=== PATIENT | female | born 1950 | race American Indian/Alaskan Native ===

== ENCOUNTER 2016-07-19 08:47 | Outpatient (CLI) | payer MEDICARE ==
[2016-07-19 09:32] LABS: Blood Urea Nitrogen 14 mg/dL (7-17)
[2016-07-19] MEDS ORDERED: NACL ONE (10:21)
--- NOTE | 2016-07-19 12:22 | Cat Scan Report ---
CT ABDOMEN WITH AND WITHOUT CONTRAST HISTORY: Metastatic ependymoma. TECHNIQUE: Helical CT performed after IV contrast. Oral contrast was administered. Sagittal and coronal reformatted images. COMPARISON: Head CT dated 01/15/16. FINDINGS: Heart size is normal. The visualized lung bases are clear. No suspicious bony lesion is identified. There is laxity of the upper anterior abdominal wall just below the xiphoid process which contains the distal stomach and a few bowel loops. This may represent previous ventral wall hernia repair, correlate with history. There is no obvious recurrent hernia. No bowel obstruction. There is fatty change throughout the liver. Surgical clips are identified along the margin of the left hepatic lobe which may represent partial resection, correlate with history. No suspicious liver mass is identified. The biliary system, pancreas, spleen and adrenal glands are unremarkable. A 5 cm simple cyst is noted in the midpole the left kidney. Scattered tiny simple cyst in the right kidney. No evidence for mass or hydronephrosis. The visualized ureters are unremarkable. The aorta is normal caliber. No evidence for ascites, adenopathy or acute inflammation. IMPRESSION: No evidence for metastatic disease to the abdomen. Mild hepatic steatosis. Possible surgical changes in the liver. Laxity of the anterior abdominal wall as outlined above please correlate with the patient's history. Scattered renal cysts.
== END 2016-07-19 08:48 | disposition home or self-care (01) ==
LOC: CT 08:47
PROVIDERS: ATTEND Internal Medicine Hematology & Oncology
DX: C71.9 Malignant neoplasm of brain, unspecified (principal)
CPT/HCPCS: 36415; 74170; 82565; 84520; Q9967

== ENCOUNTER 2016-08-11 16:47 | Emergency (ER) | payer MEDICARE ==
[2016-08-11] MEDS ORDERED: TYLENOL #3 PO ONE (19:05)
[2016-08-11 19:07] VITALS: BP 135/65
[2016-08-11] MEDS ORDERED: TYLENOL #3 ONE (19:21)
--- NOTE | 2016-08-11 20:35 | XRay Report ---
FINAL REPORT EXAM: XR HUMERUS 2 LT HISTORY: upper arm pain....fall COMPARISONS: None. FINDINGS: Three views left humerus Mild foreshortening and subluxation involving surgical neck of left humerus fracture. Minimally displaced greater tuberosity fracture is also present. IMPRESSION: Fractures involving the surgical neck of the left humerus and greater tuberosity of the left humeral head.
--- NOTE | 2016-08-11 20:37 | XRay Report ---
FINAL REPORT EXAM: XR SHOULDER 2 LT HISTORY: shoulder pain post fall COMPARISONS: None. FINDINGS: Six views left shoulder The humeral head projects over the glenoid on scapular Y-view. Mild foreshortening and subluxation involving a surgical neck of the left humerus fracture. A minimally displaced greater tuberosity fracture is also present. Acromioclavicular and coracoclavicular intervals are within normal limits. Incomplete evaluation of the adjacent left lung is remarkable for surgical clips projecting over the left lung base/left upper quadrant of the abdomen and left breast. IMPRESSION: Left humerus surgical neck and greater tuberosity fractures.
--- NOTE | 2016-08-12 03:37 | Emergency Department Report ---
Entered by THOMAS SANTILLAN, acting as scribe for CUCO CALDWELL NP. ED Fall HPI - General Chief Complaint: Fall Stated Complaint: LEFT ARM INJURY/FALL Time Seen by Provider: 08/11/16 20:00 Source: patient Mode of arrival: Wheelchair Limitations: No Limitations - History of Present Illness Initial Comments: 65 year old with a PMHx of DVT, HTN, GERD, cancer, and anxiety presents to the ED c/o left shoulder pain that began today. Patient states she was sleep on the couch and subsequently fell off the couch and landed on her left shoulder. Rates pain an 8/10 in severity. Denies LOC, head injury, headache, chest pain, SOB, numbness, tingling, abdominal pain, nausea, and vomiting. Patient is currently in a wheelchair and was brought to the ED by family. Allergic to Sulindac. Complaint: fall -: Sudden, This morning, This afternoon Fall From: chair When Fall Occurred: unsure Fall Witnessed: no Place Fall Occurred: home Prolonged Down Time?: no Symptoms Prior to Fall: none Location: other (left shoulder) Location - Extremities: Left: Shoulder Severity: moderate Severity scale (0 -10): 8 Quality: aching Context: other (fell off of the couch) Associated Symptoms: denies: headache, neck pain, numbness, weakness, chest paint, shortness of breath, abdominal pain, lightheaded, other (numbness, tinglling, SOB, nausea, and vomiting) - Related Data Previous Rx's Medication Instructions Recorded Last Taken Type HYDROcodone/APAP 7.5-325 [Cushing 1 each PO Q6HR PRN #12 tablet 08/11/16 Unknown Rx 7.5/325] Allergies Allergy/AdvReac Type Severity Reaction Status Date / Time shellfish derived Allergy Swelling Verified 08/11/16 18:48 sulindac [From [place]] Allergy Anaphylaxis Verified 08/11/16 18:48 ED Review of Systems Comment: All other systems reviewed and negative Constitutional: denies: chills, fever, other Respiratory: denies: cough, orthopnea, shortness of breath, SOB with exertion, SOB at rest Cardiovascular: denies: chest pain, palpitations, dyspnea on exertion, orthopnea , edema, syncope Gastrointestinal: denies: abdominal pain, nausea, vomiting, diarrhea Musculoskeletal: denies: back pain Skin: denies: rash Neurological: denies: headache, numbness Psychiatric: denies: anxiety, depression Hematological/Lymphatic: denies: easy bleeding, easy bruising ED Past Medical Hx - Past Medical History Hx Hypertension: Yes Hx Diabetes: (BORDERLINE) Hx Deep Vein Thrombosis: Yes Hx GERD: Yes Hx of Cancer: Yes Hx Psychiatric Treatment: Yes (ANXIETY / PANIC ATTACKS) Additional medical history: HIATAL HERNIA. PERICARDITIS - Surgical History Additional Surgical History: "PART OF STERNUM / CHEST WALL / LEFT RIBS REMOVED S /P TUMOR REMOVED. PART OF LIVER REMOVED. HYSTERECTOMY - Social History Smoking Status: Former Smoker Substance Use Type: Prescribed - Medications Home Medications: Home Medications Medication Instructions Recorded Confirmed Last Taken Type HYDROcodone/APAP 7.5-325 [Cushing 1 each PO Q6HR PRN #12 tablet 08/11/16 Unknown Rx 7.5/325] ED Physical Exam - General Limitations: No Limitations General appearance: alert, in no apparent distress - Head Head exam: Present: atraumatic, normocephalic - Eye Eye exam: Present: normal appearance, PERRL, EOMI Pupils: Present: normal accommodation - ENT ENT exam: Present: normal exam, mucous membranes moist - Neck Neck exam: Present: normal inspection, full ROM - Respiratory Respiratory exam: Present: normal lung sounds bilaterally. Absent: respiratory distress, wheezes, rales, rhonchi, stridor - Cardiovascular Cardiovascular Exam: Present: regular rate, normal rhythm, systolic murmur. Absent: diastolic murmur, rubs, gallop - GI/Abdominal GI/Abdominal exam: Present: soft, normal bowel sounds. Absent: distended, tenderness, guarding, rebound, rigid - Extremities Exam Extremities exam: Present: normal inspection, full ROM, tenderness (left shoulder), normal capillary refill. Absent: joint swelling - Expanded Upper Extremity Exam Left General: Present: normal inspection. Absent: laceration, abrasion Shoulder Exam: Present: normal inspection, tenderness, tenderness over AC joint. Absent: full ROM, swelling, abrasion, laceration, ecchymosis, deformity , crepidus, dislocation, erythema Upper Arm exam: Present: normal inspection. Absent: full ROM (limited to left shoulder pain), tenderness Elbow exam: Present: normal inspection. Absent: full ROM (limited due to left shoulder pain), tenderness Forearm Wrist exam: Present: normal inspection, full ROM. Absent: tenderness Hand Wrist exam: Present: normal inspection, full ROM. Absent: tenderness Neuro motor exam: Present: wrist extension intact, thumb opposition intact, thumb IP flexion intact, thumb adduction intact, fingers 2-5 abduction intact Neurosensory exam: Present: radial nerve intact, ulnar nerve intact, median nerve intact Vascular: Present: normal capillary refill, radial pulse (2+), brachial pulse (2 +), ulnar pulse (2+). Absent: vascular compromise, pulse deficit radial art, pulse deficit ulnar art, pulse deficit brachial art - Back Exam Back exam: Present: normal inspection, full ROM - Neurological Exam Neurological exam: Present: alert, oriented X3 - Psychiatric Psychiatric exam: Present: normal affect, normal mood - Skin Skin exam: Present: warm, dry, intact. Absent: rash ED Course Vital Signs 08/11/16 18:45 Temperature 98.6 F Pulse Rate 74 Respiratory 18 Rate Blood Pressure 135/65 O2 Sat by Pulse 99 Oximetry ED Medical Decision Making - Medical Decision Making ED course: CBC 68-year-old female presents with fracture of left humerus 1- patient received Tylenol 3. The ED for pain. 2- x-ray of the left humerus. Results: Factors involved a surgical neck of the left humerus and greater tuberosity of the left humeral head. X-ray of left shoulder. Results; left humerus surgical neck and greater tuberosity fractures. 3- the patient has been notified of x-ray results. Notify the patient to follow up with an orthopedic doctor within 24 hours. 4- patient's son is currently present at time of discharge. 5- patient received a sling to the extremity. I instructed the patient to move extremities much as possible. Patient also received Cushing 7.5 mg by mouth as needed for pain. Patient was notified not to use heavy machinery while taking Cushing due to sedation. 6- at the time of discharge the patient is not toxic or ill in appearance. No signs of any distress noted. 7- patient agrees with discharge treatment and plan. She stated she'll follow up with the orthopedic doctor within 24 hours. No further questions noted. ED Disposition Clinical Impression: Left humeral fracture Disposition: DISCHARGED TO HOME OR SELFCARE Is pt being admited?: No Does the pt Need Aspirin: No Condition: Stable Instructions: RICE Therapy (ED) Additional Instructions: Follow-up with the orthopedic doctor in 24 hours Take Cushing as prescribed as needed. Do not operate heavy machinery while taking Cushing due to sedation If symptoms worsen report back to emergency room. Prescriptions: HYDROcodone/APAP 7.5-325 [Cushing 7.5/325] 1 each PO Q6HR PRN #12 tablet PRN Reason: Pain Referrals: DOMO CISNEROS [Other] - 3-5 Days CHARO ECHOLS MD [Staff Physician] - 24 Hours This documentation as recorded by the JACQUE vallecillo JASMINE,accurately reflects the service I personally performed and the decisions made by me,CUCO CALDWELL, DARRYL.
== END 2016-08-11 21:40 | disposition home or self-care (01) ==
LOC: ED 16:47
DX: S42.252A Displaced fracture of greater tuberosity of left humerus, initial encounter for closed fracture (principal); S42.212A Unspecified displaced fracture of surgical neck of left humerus, initial encounter for closed fracture; I10 Essential (primary) hypertension; E11.9 Type 2 diabetes mellitus without complications; I82.409 Acute embolism and thrombosis of unspecified deep veins of unspecified lower extremity; Z87.891 Personal history of nicotine dependence; Z91.013 Allergy to seafood; Z88.8 Allergy status to other drugs, medicaments and biological substances; W17.89XA Other fall from one level to another, initial encounter; Y93.9 Activity, unspecified; Y99.9 Unspecified external cause status; Y92.009 Unspecified place in unspecified non-institutional (private) residence as the place of occurrence of the external cause

== ENCOUNTER 2017-01-19 11:27 | Outpatient (CLI) | payer MEDICARE ==
--- NOTE | 2017-01-19 14:47 | Mammography Report ---
Screening mammogram: Routine views are obtained. The left MLO view is limited by position due to the patient's left arm physical restrictions. The overall breast pattern is heterogeneous. The distribution appears relatively symmetric in the CC views which are somewhat better positioned than the lateral projection. An area of mild increased fibroglandular appearing density is noted superiorly on the right MLO view only. Findings otherwise remarkable. Impression: Right breast asymmetry. Recommendation: Prior exams are being requested for comparison and final report and recommendation will be a sheet when these are compared. BI-RADS CATEGORY: 0 = Needs additional imaging evaluation ACR BI-RADS MAMMOGRAPHIC CODES: 0 = Needs additional imaging evaluation; 1 = Negative; 2 = Benign; 3 = Probably benign; 4 = Suspicious; 5 = Malignant; 6 = Known biopsy-proven malignancy COMMENT: 1. Dense breast tissue, i.e., adenosis, fibrocystic changes, etc., may obscure an underlying neoplasm. 2. Approximately 10% of cancers are not detected with mammography. 3. A negative mammography report should not delay biopsy if a clinically suspicious mass is present.
== END 2017-01-19 11:28 | disposition home or self-care (01) ==
LOC: MAMMO 11:27
PROVIDERS: ATTEND Internal Medicine
DX: Z12.31 Encounter for screening mammogram for malignant neoplasm of breast (principal)
CPT/HCPCS: 77067; G0202

== ENCOUNTER 2017-07-05 09:15 | Outpatient (CLI) | payer MEDICARE ==
--- NOTE | 2017-07-05 14:55 | Mammography Report ---
BONE DEXA:07/05/17 09:30:00 CLINICAL: Postmenopausal. No comparison. TECHNIQUE: Two site bone DEXA performed on an [employer] scanner. FINDINGS: L1 BMD is 0.991g/cm squared with T score 0 and Z score +1.1. L2 BMD is 0.999g/cm squared with T score -0.3 and Z score +1.0. L3 BMD is 0.999g/cm squared with T score -0.8 and Z score plus or 0.5. L4 BMD is 0.953g/cm squared with T score -1.0 and Z score +0.4. The average BMD of the lumbar spine L1-L4 is 0.986g/cm squared with T-score -0.6 and Z-score +0.7. The average BMD of the right hip is 0.672g/cm squared with a T-score of -2.2 and a Z-score of +1.2. The right femoral neck BMD is 0.560g/cm squared with a T score of -2.6 and a Z score of -1.4. IMPRESSION: 1. WHO classification: Normal with average fracture risk based on lumbar spine measurements. 2. WHO classification: Osteoporosis with high fracture risk based on right hip measurements. RECOMMENDATION: Clinical correlation and routine screening. DEFINITIONS: BMD = Bone Mineral Density T-score = BMD related to mean peak bone mass of young adult (mean expressed in Standard Deviation) Z-score = Age matched BMD expressed in SD World Health Organization (WHO) Diagnostic Criteria Normal T-score > -1 SD Osteopenia T-score between -1 and -2.4 SD Osteoporosis T-score -2.5 SD or below NOTE: BMD is not the only risk factor for fracture. One should also consider factors such as the patient's age, risk of falling, previous osteoporotic fracture, family history of osteoporotic fractures, current smoker, and low body weight. Z-scores are not calculated if >80 years of age.
== END 2017-07-05 09:16 | disposition home or self-care (01) ==
LOC: MAMMO 09:15
PROVIDERS: ATTEND Physician Assistant
DX: M81.0 Age-related osteoporosis without current pathological fracture (principal); Z78.0 Asymptomatic menopausal state; Z87.81 Personal history of (healed) traumatic fracture
CPT/HCPCS: 77080

== ENCOUNTER 2017-07-14 12:36 | Outpatient (CLI) | payer MEDICARE ==
--- NOTE | 2017-07-17 11:08 | PET Report ---
PET SB TO MT SUBSEQUENT: HISTORY: C71.9, metastatic ependymoma restaging. TECHNIQUE: 15.1 millicuries F-18 FDG was administered intravenously. Noncontrast CT images and PET images were obtained from the top of the skull to the proximal thighs. Fused images were reviewed on a workstation. The patient's blood glucose level measured 113. COMPARISON: 01/15/16. FINDINGS: BRAIN: physiologic FDG uptake. No mass or edema is appreciated on CT. NECK: physiologic FDG uptake. MEDIASTINUM: physiologic FDG uptake. There is a borderline left internal mammary lymph node measuring 1.2 cm which has increased from 0.6 cm on the previous exam. Max SUV of this lymph node measures 1.3. This probably represents a reactive lymph node. LUNGS: physiologic FDG uptake. PLEURA/PERICARDIUM: physiologic FDG uptake. THORACIC LYMPH NODES: physiologic FDG uptake. HEPATOBILIARY: physiologic FDG uptake. Mean liver SUV measures 4.5 as opposed to 3.6 on the previous exam. PANCREAS: physiologic FDG uptake. SPLEEN: physiologic FDG uptake. ADRENAL GLANDS: physiologic FDG uptake. KIDNEYS/RENAL COLLECTING SYSTEMS: physiologic FDG uptake. BOWEL/MESENTERY: physiologic FDG uptake. PELVIC VISCERA: physiologic FDG uptake. ABDOMINAL/PELVIC LYMPH NODES: physiologic FDG uptake. MUSCULOSKELETAL: physiologic FDG uptake. IMPRESSION: Negative PET/CT. No evidence for recurrent or metastatic disease on PET imaging.
== END 2017-07-14 12:37 | disposition home or self-care (01) ==
LOC: PET 12:36
PROVIDERS: ATTEND Internal Medicine Hematology & Oncology
DX: C71.9 Malignant neoplasm of brain, unspecified (principal); Z79.899 Other long term (current) drug therapy
CPT/HCPCS: 78815; 82962; A9552

== ENCOUNTER 2018-02-02 13:05 | Outpatient (CLI) | payer MEDICARE ==
--- NOTE | 2018-02-02 14:10 | Mammography Report ---
Bilateral mammogram: Compared to 01/19/17. CAD study utilized. Findings: Predominance of adipose tissue bilaterally. There is focal 2 mm dense asymmetries identified within an ill-defined area of increase in density at the upper anterior right breast. No microcalcification. Benign axillary nodes. Impression: Focal asymmetry is right breast. Recommend spot compression and if necessary sonographic examination. BI-RADS CATEGORY: 0 = Needs additional imaging evaluation ACR BI-RADS MAMMOGRAPHIC CODES: 0 = Needs additional imaging evaluation; 1 = Negative; 2 = Benign; 3 = Probably benign; 4 = Suspicious; 5 = Malignant; 6 = Known biopsy-proven malignancy COMMENT: 1. Dense breast tissue, i.e., adenosis, fibrocystic changes, etc., may obscure an underlying neoplasm. 2. Approximately 10% of cancers are not detected with mammography. 3. A negative mammography report should not delay biopsy if a clinically suspicious mass is present. COMMENT: Patient follow-up letters are generated in [employer].
== END 2018-02-02 13:06 | disposition home or self-care (01) ==
LOC: MAMMO 13:05
PROVIDERS: ATTEND Internal Medicine Hematology & Oncology
DX: Z12.31 Encounter for screening mammogram for malignant neoplasm of breast (principal); I10 Essential (primary) hypertension; K21.9 Gastro-esophageal reflux disease without esophagitis; Z87.891 Personal history of nicotine dependence; Z90.710 Acquired absence of both cervix and uterus
CPT/HCPCS: 77067

== ENCOUNTER 2018-07-20 12:43 | Outpatient (CLI) | payer MEDICARE ==
[2018-07-20 14:15] LABS: Blood Urea Nitrogen 13 mg/dL (7-17)
--- NOTE | 2018-07-20 18:58 | Cat Scan Report ---
PROCEDURE: CT ABDOMEN WITHOUT AND WITH CONTRAST TECHNIQUE: Computerized axial tomography of the abdomen was performed before and after the IV inject ion of iodinated nonionic contrast. CT DOSE LENGTH PRODUCT: 2949.1 mGycm HISTORY: EPENDYMOMA IN RELAPSE COMPARISONS: None . FINDINGS: Visualized lower thorax: Mild linear scarring and bronchiectasis in bilateral lung bases. 6 mm subpl eural posterior right lung base nodular density. Liver: Fatty infiltration of the liver. There are clips along the left hepatic lobe. Spleen: Normal size and attenuation. Gallbladder and biliary system: Normal. Pancreas: Normal. Adrenals: Normal. Kidneys: Numerous bilateral subcentimeter low-density lesions in the kidneys are too small to charact erize but are likely cysts. There is a prominent cyst in the left kidney which measures up to 5.6 cm. GI tract: No bowel obstruction or inflammation is seen . Lymph nodes and mesentery: Normal. Vasculature: Tortuous descending thoracic aorta. Peritoneum: No free fluid. Musculoskeletal structures: No significant abnormality. Other: Subcutaneous stranding in the anterior abdominal wall may be postsurgical. IMPRESSION: 6 mm subpleural posterior right lung base nodular density. Fatty infiltration of the liver . This document is electronically signed by Marycarmen Oseguera MD., July 20 2018 06:55:47 PM ET
== END 2018-07-20 12:44 | disposition home or self-care (01) ==
LOC: CT 12:43
PROVIDERS: ATTEND Internal Medicine Hematology & Oncology
DX: C71.9 Malignant neoplasm of brain, unspecified (principal); K76.0 Fatty (change of) liver, not elsewhere classified; I10 Essential (primary) hypertension; K21.9 Gastro-esophageal reflux disease without esophagitis; Z90.710 Acquired absence of both cervix and uterus
CPT/HCPCS: 36415; 74170; 82565; 84520; Q9967

== ENCOUNTER 2019-01-19 11:40 | Outpatient (CLI) | payer MEDICARE ==
[2019-01-19 12:53] LABS: Blood Urea Nitrogen 12 mg/dL (7-17)
--- NOTE | 2019-01-19 14:57 | Cat Scan Report ---
CT ABDOMEN AND PELVIS WITH CONTRAST HISTORY: C71.9) EPENDYMONA IN RELAPSE SURVEILLANCE COMPARISON: 07/10/2018 TECHNIQUE: Axial CT images were obtained through the abdomen and pelvis after 100 cc of Omnipaque 300 intravenously. Sagittal and coronal reformatted images. All CT scans at this location are performed using CT dose reduction for ALARA by means of automated exposure control. FINDINGS: Comment: This exam is limited by excessive patient motion. The subcutaneous tissues of the anterior a bdominal wall are cut off the [id number]. CT ABDOMEN: Lung Bases: Clear. The previously described 6 mm density at the right lung base has resolved. This pr obably represented focal atelectasis. Minor linear scarring in the left lower lobe is unchanged. No n ew suspicious pulmonary nodule. Mild cardiomegaly is stable. Liver: Mild diffuse fatty infiltration is noted throughout the liver. No focal liver lesion is detect ed. Biliary: No significant abnormality. Spleen: No significant abnormality. Unenlarged. Pancreas: Mild fatty atrophy of the pancreas is evident. No mass or inflammatory changes. Adrenals: No significant abnormality. Kidneys: 5.2 cm unilocular cyst in the mid left kidney is again noted and unchanged. The kidneys and renal collecting systems are unremarkable otherwise. Lymphatics: No lymphadenopathy. Vasculature: The descending thoracic aorta appears mildly dilated and ectatic. There are mild calcifi cations in the abdominal aorta and iliac arteries. No AAA. Bowel/Peritoneum: No significant abnormality. No free air. No free fluid. Appendectomy changes are parra spected. CT PELVIS: : Hysterectomy. No adnexal abnormality. Osseous Structures: Mild lumbar spondylosis. No suspicious bony lesion has developed. Additional Findings: None IMPRESSION: Slightly limited exam by motion artifact. No evidence for disease recurrence or metastasis in the abd omen or pelvis. Mild hepatic steatosis. 5.2 cm left renal cyst. Resolved right lower lobe pulmonary nodule which probably represented atelectasis. Surgical changes as described. Signer Name: Aidan Solomon Jr, MD Signed: 01/19/2019 2:52 PM Workstation Name: [id number]
== END 2019-01-19 11:41 | disposition home or self-care (01) ==
LOC: CT 11:40
PROVIDERS: ATTEND Internal Medicine Hematology & Oncology
DX: C71.9 Malignant neoplasm of brain, unspecified (principal); I10 Essential (primary) hypertension; K76.0 Fatty (change of) liver, not elsewhere classified; K21.9 Gastro-esophageal reflux disease without esophagitis; Z90.710 Acquired absence of both cervix and uterus
CPT/HCPCS: 36415; 74177; 82565; 84520; Q9967; 74450

== ENCOUNTER 2019-02-21 11:17 | Outpatient (CLI) | payer MEDICARE ==
--- NOTE | 2019-02-21 12:35 | Cat Scan Report ---
CT CHEST WITHOUT CONTRAST INDICATION / CLINICAL INFORMATION: I10 ESSENTIAL HTN/I71.2THORACIC AORTIC ANEURYSM WITHOUT RUPTURE. TECHNIQUE: Axial CT images were obtained through the chest without contrast. Sagittal and coronal reformatted im ages. All CT scans at this location are performed using CT dose reduction for ALARA by means of autom ated exposure control. COMPARISON: None available. FINDINGS: HEART: No significant abnormality. No pericardial effusion. There are moderate coronary artery calcif ications. THORACIC AORTA: The aorta is mildly ectatic with scattered calcific plaques. The ascending aorta margarita ures up to 4.1 cm in diameter. The aortic arch measures 3.1 cm in diameter. There appears to be mild aneurysmal dilatation of the descending thoracic aorta just above the diaphragm measuring up to 4.3 c m in diameter. MEDIASTINUM and GLORIA: No mass or adenopathy. A 2.5 cm hypodensity is noted in the inferior left thyro id lobe. LUNGS: No acute air space or interstitial disease. Minor linear scarring or atelectasis is noted in the lower lung zones. PLEURA: No significant pleural effusion. No pneumothorax. SKELETAL SYSTEM: Mild thoracic spondylosis. No fracture or suspicious bony lesion. UPPER ABDOMEN: I question if there is a defect in the anterior diaphragm near midline. A portion of t he stomach appears to project into the lower anterior mediastinum. There are multiple surgical clips in this area. Please correlate with the patient's history. ADDITIONAL FINDINGS: None. IMPRESSION: Mild to moderate atherosclerotic disease in the aorta with measurements as described above. There do es appear to be mild fusiform dilatation of the descending thoracic aorta. Minor linear scarring or atelectatic changes in the lower lung zones. Left thyroid hypodensity. Consider ultrasound correlation. Surgical changes in the upper abdomen with possible diaphragmatic defect. Please see above and correl ate with the images. Signer Name: Aidan Solomon Jr, MD Signed: 02/21/2019 12:30 PM Workstation Name: [id number]
== END 2019-02-21 11:18 | disposition home or self-care (01) ==
LOC: CT 11:17
PROVIDERS: ATTEND Radiology Diagnostic Radiology
DX: I70.0 Atherosclerosis of aorta (principal); I10 Essential (primary) hypertension; I71.2 Thoracic aortic aneurysm, without rupture; Z85.841 Personal history of malignant neoplasm of brain; Z88.8 Allergy status to other drugs, medicaments and biological substances
CPT/HCPCS: 71250

== ENCOUNTER 2019-02-27 13:32 | Outpatient (CLI) | payer MEDICARE ==
--- NOTE | 2019-02-27 14:57 | Mammography Report ---
DIGITAL SCREENING MAMMOGRAM WITH CAD, 02/27/2019 INDICATION: Routine screening mammography. TECHNIQUE: Digital bilateral 2D mammography was obtained in the craniocaudal and mediolateral obliq ue projections. This examination was interpreted with the benefit of Computer-Aided Detection analysi s. COMPARISON: 02/02/2018 and 02/21/2018 FINDINGS: Breast Density: The breasts are heterogeneously dense, which may obscure small masses. A right upper asymmetry is more prominent than on the last mammograms and requires additional imaging . No architectural distortion or suspicious calcifications. There is no evidence of dominant mass, parra spicious calcifications or architectural distortion in the left breast. IMPRESSION: Right asymmetry requiring additional imaging. Recommend recall for right lateral, exagger ated CC and spot compression MLO views and right breast ultrasound if needed. Follow up recommendation: Special View: Spot Category 0: Incomplete. Needs additional imaging evaluation and/or prior mammograms for comparison. A "normal" or negative report should not discourage follow up or biopsy of a clinically significant f inding. A written summary of these findings will be mailed to the patient. The patient will be entered into a mammography reporting system which will generate a reminder letter for the patient's next appointmen t at the appropriate interval. The [employer] recommends yearly mammograms starting at age 40 and continuing as l altagracia as a woman is in good health. Breast MRI is recommended for women with an approximate 20-25% or greater lifetime risk of breast cancer, including women with a strong family history of breast or ova joni cancer or who have been treated for Hodgkin's disease. Signer Name: Harry Rayo MD Signed: 02/27/2019 2:53 PM Workstation Name: [id number]
== END 2019-02-27 13:33 | disposition home or self-care (01) ==
LOC: SPVWC 13:32
PROVIDERS: ATTEND Surgery
DX: Z12.31 Encounter for screening mammogram for malignant neoplasm of breast (principal)
CPT/HCPCS: 77067

== ENCOUNTER 2019-03-12 12:40 | Outpatient (CLI) | payer MEDICARE ==
--- NOTE | 2019-03-12 13:57 | Ultrasound Report ---
RIGHT DIGITAL DIAGNOSTIC MAMMOGRAM WITH CAD 03/12/2019 RIGHT COMPLETE BREAST ULTRASOUND INDICATION: Recall to evaluate mammographic asymmetry. ABNORMAL MAMMOGRAM TECHNIQUE: Digital right mammographic imaging was performed. Spot compression views were obtained. C omplete ultrasound of all four (4) quadrants was performed. This examination was interpreted with the benefit of Computer-Aided Detection (CAD) analysis. COMPARISON: 02/27/2019 FINDINGS: Breast Density: The breast is heterogeneously dense, which may obscure small masses. MAMMOGRAPHIC FINDINGS: Near complete effacement of asymmetry on a spot MLO view. Lateral and exaggera yuki CC views are normal. ULTRASOUND FINDINGS: Complete sonographic evaluation of all 4 quadrants and retroareolar region was p erformed. An oval smooth complex cyst with low-level internal echoes at 12:00 2 cm from the nipple measures 5 x 2 x 4 mm. No mass, cyst or suspicious shadowing or posterior in the upper breast. The as ymmetry appears to represent summation of densities. IMPRESSION: Probably benign summation density in the upper breast. Recommend 6 month follow-up mammog vinh and ultrasound. Follow up recommendation: Short term follow up in 6 months. BI-RADS Category 3: Probably Benign. Followup in 6 months. A "normal" or negative report should not discourage follow up or biopsy of a clinically significant f inding. A written summary of these findings will be mailed to the patient. The patient will be entered into a mammography reporting system which will generate a reminder letter for the patient's next appointmen t at the appropriate interval. According to the [employer], yearly mammograms are recommended starting at age 40 and continuing as long as a woman is in good health. Breast MRI is recommended for women with an scotty roximately 20-25% or greater lifetime risk of breast cancer, including women with a strong family his tory of breast or ovarian cancer and women who have been treated for Hodgkin's disease. Signer Name: Harry Rayo MD Signed: 03/12/2019 1:53 PM Workstation Name: [id number]
== END 2019-03-12 12:41 | disposition home or self-care (01) ==
LOC: SPVWC 12:40
PROVIDERS: ATTEND Surgery
DX: R92.8 Other abnormal and inconclusive findings on diagnostic imaging of breast (principal); R92.2 Inconclusive mammogram

== ENCOUNTER 2020-04-02 10:55 | Outpatient (CLI) | payer MEDICARE ==
--- NOTE | 2020-04-02 12:27 | Mammography Report ---
DIGITAL SCREENING MAMMOGRAM WITH CAD, 04/02/2020 CLINICAL INFORMATION / INDICATION: Routine screening mammography. TECHNIQUE: Digital bilateral 2D mammography was obtained in the craniocaudal and mediolateral obliqu e projections. This examination was interpreted with the benefit of Computer-Aided Detection analysis . COMPARISON: 08/28/2019 and multiple priors FINDINGS: Breast Density: The breasts are heterogeneously dense, which may obscure small masses. No dominant mass, suspicious calcifications, or architectural distortion in either breast. Right density is not significantly changed. Benign-appearing bilateral calcifications are stable. IMPRESSION: No mammographic evidence of malignancy. Follow up recommendation: Routine yearly BI-RADS Category 2: Benign. A "normal" or negative report should not discourage follow up or biopsy of a clinically significant f inding. A written summary of these findings will be mailed to the patient. The patient will be entered into a mammography reporting system which will generate a reminder letter for the patient's next appointmen t at the appropriate interval. The [employer] recommends yearly mammograms starting at age 40 and continuing as l altagracia as a woman is in good health. Breast MRI is recommended for women with an approximate 20-25% or greater lifetime risk of breast cancer, including women with a strong family history of breast or ova joni cancer or who have been treated for Hodgkin's disease. Signer Name: Ronal Miller MD Signed: 04/02/2020 12:23 PM Workstation Name: [id number]
== END 2020-04-02 10:56 | disposition home or self-care (01) ==
LOC: SPVWC 10:55
PROVIDERS: ATTEND Surgery
DX: Z12.31 Encounter for screening mammogram for malignant neoplasm of breast (principal)
CPT/HCPCS: 77067